=== PATIENT | male | born 1955 | race Hispanic/Latino ===

== ENCOUNTER → 2024-12-16 | Outpatient (CLI) | payer OTHER ==
[~2024-12-16] MED LIST: IOHEXOL 350 MG/ML 100ML INFUS..BTL IV ONE
--- NOTE | 2024-12-19 14:23 | CARDIOLOGY ---
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 A dedicated, limited window, coronary imaging protocol was used, with single breath-hold, retrospective ECG gating, and automated arrhythmia rejection. 100 cc of low osmolar contrast agent: Omnipaque 350 was delivered via a 18-gauge IV catheter in the right antecubital fossa, using a power injector and followed by 60 cc of normal saline bolus as a chaser. Collimated images were reformatted at 0.5 mm intervals, and sent to an offline independent workstation for interpretation, using 3D anatomic reconstructions: Curved multiplanar reconstructions, maximum intensity projections, and multiplanar imaging. No metoprolol was administered prior to scanning due to low baseline heart rate. 0.8 mg SL nitroglycerin was given. CORONARY ARTERY DESCRIPTIONS: The coronary arteries arise in normal position. Left main coronary artery: Normal caliber vessel that bifurcates into the LAD and LCx. No stenosis. Left anterior descending coronary artery: Normal caliber vessel and gives rise to diagonal and septal branches. There is mixed calcified and noncalcified plaque in the proximal LAD with 50-60% stenosis. There is mixed calcified and noncalcified plaque in the mid D1 with 40-50% stenosis. Left circumflex coronary artery: Normal caliber, nondominant and gives rise to two large OM branches. There is calcified plaque in the proximal LCx with 20-30% stenosis. Right coronary artery: Large, dominant vessel giving rise to the PL and PDA branches. There is mixed calcified and noncalcified plaque in the proximal RCA with 80-90% stenosis. CAD-RADs: 3, moderate stenosis. Thoracic Aorta: Normal diameter. Rebeca Elizabeth MD Cardiovascular Disease [facility] REBECA ELIZABETH MD Dec 19, 2024 14:23
== END | disposition home or self-care (01) ==
LOC: RAH 10:28
PROVIDERS: ATTEND Internal Medicine Cardiovascular Disease
DX: I25.10 Atherosclerotic heart disease of native coronary artery without angina pectoris (principal); R07.9 Chest pain, unspecified
CPT/HCPCS: 75574; Q9967

== ENCOUNTER 2025-03-03 09:07 | Day surgery (SDC) | payer OTHER ==
[2025-03-01 09:23] LABS: IMMATURE GRANULOCYTE ABSOLUTE 0.01 K/uL (0-1); NUCLEATED RED BLOOD CELLS 0.0 % (0.0-0.19); PLATELET COUNT (AUTO) 172 K/uL (130-400); RED BLOOD CELL COUNT(AUTO) 4.92 MIL/uL (4.50-6.20); RED CELL DISTRIBUTION WIDTH 12.3 % (11.0-15.5); WHITE BLOOD COUNT (AUTO) 5.6 K/uL (4.8-10.8)
--- NOTE | 2025-03-01 09:23 | EKG ---
[facility] Test Date: 2025-03-01 Test Time: 09:18:58 Pat Name: SENDY MCLEAN Department: [facility] Room: Gender: M Vp Software: [id number] : [id number] Requested By: MARVA NASCIMENTO Order Number: [id number] Reading MD: Marva Tomlinson Measurements Intervals [place] Rate: 57 P: 34 VA: 143 QRS: 8 QRSD: 132 T: 30 QT: 435 QTc: 424 Interpretive Statements Sinus rhythm Probable left atrial enlargement Right bundle branch block No previous ECG available for comparison Electronically Signed On 03-01-2025 12:16:36 GEAR CHANGER by Marva Tomlinson Please click the below link to view image of tracing.
[2025-03-01 09:29] LABS: APPEARANCE,URINE CLEAR (CLEAR); GLUCOSE, URINE (UA) 200 mg/dL (NEGATIVE); LEUKOCYTE ESTERASE ,URINE NEGATIVE Leu/uL (NEGATIVE); NITRATE,URINE NEGATIVE (NEGATIVE); OCCULT BLOOD,URINE NEGATIVE (NEGATIVE)
[2025-03-01 09:30] LABS: CREATININE 1.0 mg/dL (0.5-1.3); GLOMERULAR FILTR. RATE CALC 81.0 mL/min (>90); GLUCOSE,RANDOM 82.0 mg/dL (70-105); SODIUM SERUM 142.0 mmol/L (136-145); UREA NITROGEN, BLOOD 20.0 mg/dL (7-18)
[2025-03-01 09:30] LABS: ADD UA MICROSCOPIC YES
[2025-03-01 09:33] LABS: INR 0.96 (0.85-1.15)
[2025-03-01 09:58] LABS: SQUAMOUS EPITHELIAL CELL,UR Rare /HPF (0-2)
[2025-03-01 10:06] VITALS: BP 144/87; PULSE 64; RESP 18; TEMP 98.4
--- NOTE | 2025-03-01 22:47 | HMCIMG ---
EXAM: CR CHEST, 1 VIEW CLINICAL HISTORY: Preoperative COMPARISON: None provided TECHNIQUE: Single frontal radiograph of the chest was obtained. FINDINGS: Lines/Devices: None. Lungs: Radiographically clear. No consolidation or ground-glass opacities are observed. There is no pleural effusion. There is no pneumothorax. Mediastinum and cardiovascular structures: Prominent aortic knuckle with a calcified atheromatous plaque. The cardiac silhouette is not enlarged. The central airway and mediastinal contours are unremarkable. Bones and soft tissues: Unremarkable. IMPRESSION: 1. No evidence of acute cardiopulmonary abnormalities. 2. Prominent aortic knuckle with a calcified atheromatous plaque. /[place]
[2025-03-03] VITALS (8 sets, daily range): BP systolic 127–143; BP diastolic 68–80; PULSE 47–68; RESP 13–16; TEMP 97–97.7
[~2025-03-03] VITALS: Ht 165.1 cm; Wt 78.8 kg
[2025-03-03] MEDS ORDERED: HEParin-NS 1,000 UNIT/500 ML 1,000 ML IV ONE (10:40)
[2025-03-03] MEDS ORDERED: IOHEXOL 350 MG/ML 100ML INFUS..BTL IV ONE (10:40)
[2025-03-03] MEDS ORDERED: NITROGLYCERIN 50MG VIAL ONE (10:40)
[2025-03-03] MEDS ORDERED: LIDOCAINE HCL 400MG/20ML VIAL ONE (10:40)
[2025-03-03] MEDS ORDERED: MIDAZOLAM HCL 1 MG/ML 2ML VIAL ONE (11:29)
[2025-03-03] MEDS: 0.9%NACL 1000ML 1,000 ML IV SCH (12:17)
--- NOTE | 2025-03-03 12:51 | PRN ---
PROCEDURE NOTE Indications: Chest pain BALTAZAR Abnormal coronary CTA done on 12/16/2024 Normal left ventricle systolic function (LVEF 55% by echocardiogram done on 01/04/2025) Chronic venous insufficiency PID GERD Myasthenia gravis Procedures: Coronary angiogram, IFR of the LAD Introduction: After informed written consent was obtained, the patient was brought to the Catheterization Lab in the usual fasting state. Following sterile prep and drape, a time out was performed, then moderate sedation was administered, 1mg of Versed and 50mcg of Fentanyl, then 1% Lidocaine was infiltrated into the right femoral groin. Using a Modified Seldinger technique, a 6Fr Sheath was inserted into the right common femoral artery. While under fluoroscopic guidance, diagnostic coronary catheters were advanced over a wire into the central circulation where they were aspirated, flushed and placed to pressure monitoring, once the wire was removed. Coronary Angio: The left and right coronary arteries were engaged with appropriate catheters and angiography was performed under continuous pressure monitoring. Cardiac Findings: Right dominant system LM: Large caliber vessel with mild luminal irregularities. The vessel bifurcates into the LAD and LCX. LAD: Medium caliber vessel with 30% stenosis in the ostial LAD and diffuse 50% stenosis in the mid LAD. DANIELA 3 blood flow distally. Diagonal 1: Medium caliber vessel with 30% stenosis in the mid segment of the vessel. LCx: Large caliber vessel with 40% stenosis in the mid LCX. The vessel tapers into a small caliber vessel distally. OM1: Small caliber vessel (1.25 mm) with 40% stenosis in the ostial segment of the vessel OM2: Large caliber vessel with mild luminal irregularities in the proximal, mid, and distal segments of the vessel. There was a branch in the distal segment of the OM2 that has 80% stenosis. The branch is 1.0 mm in size OM3: Small caliber vessel with mild luminal irregularities. RCA: Large caliber vessel with 30-40% stenosis in the proximal RCA and 20% stenosis in the mid RCA. RPDA: Large caliber vessel with mild luminal irregularities RPLV: Small caliber vessel (1 mm) with mild luminal irregularities Medications given: Versed 2mg, Fentanyl 75mcg, nitroglycerin 200mcg, heparin 6000units Coronary Intervention: Guide catheter: JL 4 Guidewire: IFR After reviewing the above-mentioned findings the decision was made to further evaluate the LAD. The patient was administered heparin 6000 units x 1 dose. We then advanced the JL4 guide catheter into the ostium of the left main. We then advanced the IFR wire into the left main and normalized the pressures. We then advanced the IFR wire across the areas stenosis and into the distal LAD. We then performed hemodynamic assessment, which revealed that the stenosis in the mid LAD was not significant, 0.93. The IFR wire was then pulled back into the left main and there was no significant tripped identified. The IFR wire and JL4 guide catheter were then removed. The patient tolerated the procedure well and without issue. Complications: None Conscious Sedation Monitoring: Under my direct order and supervision, medication for moderate conscious sedation was administered by the nursing staff and the patients level of consciousness and physiological status was monitored by an independent trained nurse. Closure of Access Site: After the case completed the sheath was pulled and a 6Fr Vascade was deployed in the right common femoral artery without complication. Conclusion: 1. Nonobstructive CAD, diffuse 50% stenosis in the mid LAD, hemodynamically insignificant by IFR (0.93 2. Nonobstructive CAD in the diagonal one, LCX, OM1, and RCA 3. CAD, 80% stenosis in a branch of the distal OM2, the vessel is 1.0 mm in size, and not amenable to percutaneous or surgical intervention 4. False positive coronary CTA, the stenosis in the RCA was overestimated because of blooming artifact 5. Chest pain, may be secondary to microvascular dysfunction 6. BALTAZAR 7. Normal left ventricle systolic function (LVEF 55% by echocardiogram done on 01/04/2025 Recommendation: 1. Continue goal-directed medical therapy 2. 4 hours of bedrest 3. Groin precautions 4. Start NS at 100 mL/hour x3 hours. 5. Okay to DC once bed restless complete in the right groin is soft, free of bruising, bleeding, and or hematoma formation. 6. No driving for the next 48 hours. 7. No heavy lifting or strenuous exercise for the next two weeks. 8. Please have the patient follow up with Dr. Vigil in 1-2 weeks. MARVA VIGIL MD Mar 03, 2025 12:51
[2025-03-03] MEDS ORDERED: DEXTROSE 50%-WATER 50 ML DISP.SYRIN IV PRN (13:00)
[2025-03-03] MEDS ORDERED: GLUCAGON 1MG KIT 1 MG ML IM PRN (13:00)
[2025-03-03] MEDS ORDERED: 0.9%NACL 1000ML 1,000 ML IV SCH (13:00)
--- NOTE | 2025-03-03 13:47 | NUR ---
Right Femoral site clean, dry and intact. No sign of bleeding, bruising or hematoma. Instructed Patient and Family of precautions and expectations until discharge. All voiced understanding.Reported in full to receiving Nurse, Isauro GALDAMEZ.
== END 2025-03-03 16:20 | disposition home or self-care (01) ==
LOC: DAH 09:07
PROVIDERS: ATTEND Internal Medicine Cardiovascular Disease
DX: R07.9 Chest pain, unspecified (principal); I25.10 Atherosclerotic heart disease of native coronary artery without angina pectoris; I87.2 Venous insufficiency (chronic) (peripheral); R06.09 Other forms of dyspnea; K21.9 Gastro-esophageal reflux disease without esophagitis; R94.39 Abnormal result of other cardiovascular function study; G70.00 Myasthenia gravis without (acute) exacerbation; I10 Essential (primary) hypertension; E11.51 Type 2 diabetes mellitus with diabetic peripheral angiopathy without gangrene; E78.5 Hyperlipidemia, unspecified; E86.0 Dehydration; Z86.718 Personal history of other venous thrombosis and embolism; Z79.01 Long term (current) use of anticoagulants; Z90.89 Acquired absence of other organs; Z88.0 Allergy status to penicillin; Z79.84 Long term (current) use of oral hypoglycemic drugs; Z79.82 Long term (current) use of aspirin; Z79.899 Other long term (current) drug therapy
CPT/HCPCS: 80048; 83880; 85025; 85610; 85730; 81001; 36415; 71045; 93005; 93454; 93571; 99156; 99157 ×3; 85347; 82948; 96360; 96361; C1887; C1894 ×2; C1760 ×2; C1769; Q9965 ×2; J3010; J3490 ×2; J1644 ×2; J2250; Q9967; A4215; A4222; A4221; A4663; A4216; A4606; A4223 ×3